=== PATIENT | female | born 1990 | race African-American/Black ===

== ENCOUNTER 2017-08-30 22:28 | Emergency (ER) | payer OTHER ==
[~2017-08-30] VITALS: Ht 162.6 cm; Wt 87.0 kg
[~2017-08-30 22:28] MED LIST: CHILDREN'S100 MG/5 M PO; CYMBALTA20 MG PO; DULOXETINE HCL60 MG PO; ESSENTIAL DAIL1 EACH PO; IRON18 MG PO; PRENATAL MULTI1 EAC2 PO; Percocet 5/325,Endoc PO; STRATTERA25 MG PO; STRATTERA80 MG PO; ZOFRAN ODT4 MG PO; ZOFRAN4 MG PO
[2017-08-30 22:31] VITALS: BP 126/66
[2017-08-30] MEDS ORDERED: FLEXERIL10 MG PO (23:21)
[2017-08-30] MEDS ORDERED: PREDNISONE20 MG PO (23:21)
[2017-08-30] MEDS ORDERED: MOTRIN800 MG PO (23:21)
== END 2017-08-31 00:14 | disposition home or self-care (01) ==
LOC: EME 22:28
DX: M62.830 Muscle spasm of back (principal); F17.200 Nicotine dependence, unspecified, uncomplicated; Z87.39 Personal history of other diseases of the musculoskeletal system and connective tissue
CPT/HCPCS: 99281; 99284; J1885; J7512